=== PATIENT | female | born 1945 | race Caucasian/White ===

== ENCOUNTER 2016-11-29 05:22 | Day surgery (SDC) | payer MEDICARE, BC ==
[2016-11-29] MEDS ORDERED: Midazolam 1 MG/ML 2 ML SDV IV ONE ×4 (05:23→06:37)
[2016-11-29] MEDS ORDERED: fentaNYL 100 MCG/2 ML SDV IV ONE ×3 (05:23→06:35)
[2016-11-29] MEDS ORDERED: Midazolam 1 MG/ML 2 ML SDV ONE (06:13)
[2016-11-29] MEDS ORDERED: fentaNYL 100 MCG/2 ML SDV ONE (06:13)
[2016-11-29] MEDS ORDERED: Dextrose 5%-0.45% NaCl 1,000 ML IV SCH (07:00)
[2016-11-29] MEDS ORDERED: Sodium Chloride 0.9% 10 ML Syringe FLUSH PRN (07:00)
--- NOTE | 2016-11-29 07:39 | OR ---
DATE: 11/29/2016 PROCEDURES: Esophagogastroduodenoscopy and multiple pinch biopsies. INSTRUMENT USED: GIF-H180 Olympus video panendoscope. PREMEDICATIONS: Fentanyl 100 mcg intravenous, Versed 2 mg intravenous. Nasal O2 cannula. The procedure was done under pulse oximetry, BP recording, and showroom sales assistant. INDICATION: The patient with previous peptic ulcer disease with persistent upper abdominal pain as well as dyspepsia unexplained and not responsive to medical measures. Esophagogastroduodenoscopy is performed for detection of any active erosive lesions, malignancy also under consideration, endoscopic hemostasis therapy if needed. DESCRIPTION OF PROCEDURE: The scope was passed with ease. Adequate visualization of the esophagus was made from proximal to distal areas. No upper esophageal lesions identified. No distal esophageal stricture. No uphill or downhill esophageal varices. No Marilou-Cerda tear. No evidence of erosive esophagitis by Coke criteria. No esophageal polyp or tumor mass identified. Z-line was noted at around 40 cm distal to the oral verge, configuration consistent with grade 1 by ZAP classification. No proximal gastric varices noted. Gastric fundus examination by retroflexion showed no polypoid lesions. No gastric ulcer, malignant mass, or vascular ectasia identified. Multiple pinch biopsies were taken from the gastric antrum and proximal body and sent for PyloriTek test for H. pylori, and if negative in an hour, the tissue is to be sent for histopathology. Duodenal bulb shows no ulcer. Visualized second part of the duodenum is unremarkable. Multiple gastric antral erosions were noted without bleeding from them. Photographs were taken of the duodenal bulb, gastric antrum, fundus, and distal esophagus. IMPRESSION: Gastric antral erosions. The patient tolerated the procedure well. [facility] /[id number]
[2016-11-29 09:00] VITALS: BP 113/68
== END 2016-11-29 08:40 | disposition home or self-care (01) ==
LOC: DL.ENDO 05:22
PROVIDERS: ATTEND Internal Medicine Gastroenterology
DX: K29.50 Unspecified chronic gastritis without bleeding (principal); E03.9 Hypothyroidism, unspecified; F32.9 Major depressive disorder, single episode, unspecified; F41.1 Generalized anxiety disorder; Z72.0 Tobacco use; Z88.1 Allergy status to other antibiotic agents; Z88.2 Allergy status to sulfonamides; Z88.8 Allergy status to other drugs, medicaments and biological substances; Z91.09 Other allergy status, other than to drugs and biological substances
CPT/HCPCS: 43239; 87077; 88305; 88342; J2250; J3010; J7042

== ENCOUNTER 2017-01-03 05:14 | Day surgery (SDC) | payer MEDICARE, BC ==
[~2017-01-03 05:14] MED LIST: Sodium Chloride 0.9% 10 ML Syringe FLUSH PRN
[2017-01-03] MEDS ORDERED: Midazolam 1 MG/ML 2 ML SDV IV ONE ×6 (05:15→06:31)
[2017-01-03] MEDS ORDERED: fentaNYL 100 MCG/2 ML SDV IV ONE ×3 (05:15→06:21)
[2017-01-03] MEDS ORDERED: Dextrose 5%-0.45% NaCl 1,000 ML IV SCH (06:00)
[2017-01-03] MEDS ORDERED: Midazolam 1 MG/ML 2 ML SDV ONE (06:11)
[2017-01-03] MEDS ORDERED: fentaNYL 100 MCG/2 ML SDV ONE (06:11)
--- NOTE | 2017-01-03 07:34 | OR ---
DATE: 01/03/2017 PROCEDURE: Total colonoscopy, NBI, and cold snare polypectomy. INSTRUMENT USED: CF-H180AL Olympus video colonoscope. PREMEDICATIONS: Fentanyl 100 mcg intravenous, Versed 3 mg intravenous. Nasal O2 cannula. The procedure was done under pulse oximetry, BP recording, and quality assurance monitor. INDICATION: The patient with previous sessile serrated adenoma removal, recent right-sided lower abdominal pain unexplained. Colonoscopic examination is done for detection of any polypoid lesions and removal, endoscopic hemostasis therapy if needed. DESCRIPTION OF PROCEDURE: Initial rectal exam was unremarkable. Rigid anoscopy was normal. The colonoscope was passed with ease. Few scattered diverticula were noted in the distal left colon along with some deformity. Diminutive benign-appearing multiple polyps were noted in the rectum, macroscopic features consistent with hyperplastic ones. The scope was passed with ease up to the ileocecal area, photographs were taken of the normal-appearing cecum, identified by double-bulged ileocecal folds. No bleeding was noted from any of the visualized areas at the commencement of the examination. No stricture. No vascular ectasia. No large isolated ulcerations seen. No evidence of diffuse inflammatory bowel disease in the form of friability, contact bleeding, or ulcerations. Probing the proximal sides of folds and flexures, using adequate distention and clearing up the stool material, withdrawal of the scope was made. In the distal descending colon, diminutive benign-appearing polyp was noted, NBI views were obtained, cold snare polypectomy was done, the tissue was retrieved and sent for histopathology. No bleeding was noted from any of the visualized areas at the completion of examination. IMPRESSION: 1. Diverticulosis. 2. Diminutive colonic polyps. The patient tolerated the procedure well. [facility] /[id number]
[2017-01-03 09:15] VITALS: BP 127/80
== END 2017-01-03 08:50 | disposition home or self-care (01) ==
LOC: DL.ENDO 05:14
PROVIDERS: ATTEND Internal Medicine Gastroenterology
DX: Z12.11 Encounter for screening for malignant neoplasm of colon (principal); D12.4 Benign neoplasm of descending colon; Z85.038 Personal history of other malignant neoplasm of large intestine; K57.30 Diverticulosis of large intestine without perforation or abscess without bleeding; E03.9 Hypothyroidism, unspecified; F41.1 Generalized anxiety disorder; F32.9 Major depressive disorder, single episode, unspecified; Z88.1 Allergy status to other antibiotic agents; Z88.2 Allergy status to sulfonamides; Z88.8 Allergy status to other drugs, medicaments and biological substances; Z72.0 Tobacco use
CPT/HCPCS: 45385; J2250; J3010; J7042; 88305

== ENCOUNTER 2018-09-04 23:20 | Emergency (ER) | payer MEDICARE, BC ==
[2018-09-04 23:27] VITALS: BP 149/88
[2018-09-04] MEDS ORDERED: Sodium Chloride 0.9% 10 ML Syringe FLUSH PRN (23:27)
--- NOTE | 2018-09-04 23:50 | EDM.PDOC ---
ED HPI GENERAL MEDICAL PROBLEM - General Chief Complaint: Chest Pain Stated Complaint: CHEST PAIN [id number] Time Seen by Provider: 09/04/18 23:35 Source of Information: Reports: Patient, Family, RN, RN Notes Reviewed History Limitations: Reports: No Limitations - History of Present Illness INITIAL COMMENTS - FREE TEXT/NARRATIVE: Pt to ER with c/o cramping in the chest. Pt states she has had this happen about 4 times in the past month. She states it feels like a muscle spasm across the chest, sometimes in the neck. More difficult to take deep breaths, and to sit up. Denies radiation of the pain. Denies recent fever or chills. Pt. states she has been exercising daily at the gym, lifting hand weights. Also states she has recently been using a palm giselle and sanding boards. She states she is also concerned as she recently found out she has a hiatal hernia. Onset: Gradual Duration: Intermittent Location: Reports: Chest Mid-Sternal Chest Pain Score (Numeric/FACES): 9 - Related Data Allergies Allergy/AdvReac Type Severity Reaction Status Date / Time meperidine HCl [From Demerol] Allergy Unknown Arrhythmias Verified 01/03/17 05: 39 sulfamethoxazole Allergy Unknown HIVES/URTIC Verified 01/03/17 05:39 [From Bactrim] ARIA trimethoprim [From Bactrim] Allergy Unknown HIVES/URTIC Verified 01/03/17 05:39 ARIA formaldehyde Allergy Confusion Verified 01/03/17 05:39 petrolatum,white Allergy Confusion Verified 01/03/17 05:39 [From Petroleum Jelly] Home Meds: Home Meds Aspirin [Halfprin] 81 mg PO DAILY 02/07/16 [History] Levothyroxine 112 mcg PO DAILY 02/07/16 [History] Simvastatin 20 mg PO BEDTIME 02/07/16 [History] LORazepam 0.5 mg PO ASDIRECTED PRN 11/28/16 [History] Loratadine [Claritin] 10 mg PO DAILY PRN 11/28/16 [History] Omeprazole 20 mg PO DAILY 12/26/16 [History] Amitriptyline [Elavil] 25 mg PO BEDTIME 01/02/17 [History] cycloSPORINE [Restasis] 2 drop EYEBOTH DAILY 01/02/17 [History] Past Medical History HEENT History: Reports: Cataract, Sinusitis Cardiovascular History: Reports: High Cholesterol Respiratory History: Gastrointestinal History: Reports: Colon Polyp, Other (See Below) Other Gastrointestinal History: nausea Genitourinary History: Reports: None 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: Musculoskeletal History: Other Musculoskeletal History: OSTEOPENIA Neurological History: Psychiatric History: Reports: Panic Attack Endocrine/Metabolic History: Reports: Hypothyroidism Hematologic History: Reports: None Immunologic History: Reports: None Oncologic (Cancer) History: Reports: Leukemia Dermatologic History: Reports: None - Infectious Disease History Infectious Disease History: Reports: Chicken Pox, Measles, Mumps - Past Surgical History Head Surgeries/Procedures: Reports: None HEENT Surgical History: Reports: Cataract Surgery Cardiovascular Surgical History: Reports: None GI Surgical History: Reports: Colonoscopy, EGD Female Surgical History: Reports: None Endocrine Surgical History: Reports: None Social & Family History - Family History Family Medical History: Noncontributory - Tobacco Use Smoking Status *Q: Never Smoker Second Hand Smoke Exposure: No - Caffeine Use Caffeine Use: Reports: None Other Caffeine Use: DECAF COFFEE - Recreational Drug Use Recreational Drug Use: No ED ROS GENERAL - Review of Systems Review Of Systems: ROS reveals no pertinent complaints other than HPI. ED EXAM, GENERAL - Physical Exam Exam: See Below Exam Limited By: No Limitations General Appearance: Alert, WD/WN, Mild Distress Eye Exam: Bilateral Eye: EOMI, Normal Inspection Ears: Normal External Exam, Hearing Grossly Normal Nose: Normal Inspection Throat/Mouth: Normal Inspection, Normal Voice, No Airway Compromise Head: Atraumatic, Normocephalic Neck: Normal Inspection, Supple, Non-Tender, Full Range of Motion Respiratory/Chest: No Respiratory Distress, Lungs Clear, Normal Breath Sounds, No Accessory Muscle Use. No: Chest Non-Tender (chest tender to touch right and left anterior) Cardiovascular: Normal Peripheral Pulses, Regular Rate, Rhythm, No Edema, No Gallop, No JVD, No Murmur, No Rub Peripheral Pulses: 2+: Radial (L), Radial (R) GI/Abdominal: Normal Bowel Sounds, Soft, Non-Tender, No Organomegaly, No Distention (Female) Exam: Deferred Rectal (Female) Exam: Deferred Back Exam: Normal Inspection, Full Range of Motion, NT Extremities: Normal Inspection, Normal Range of Motion, Non-Tender, Normal Capillary Refill, No Pedal Edema Neurological: Alert, Oriented, CN II-XII Intact, Normal Cognition, Normal Gait, Normal Reflexes, No Motor/Sensory Deficits Psychiatric: Normal Affect, Normal Mood, Anxious Skin Exam: Warm, Dry, Intact, Normal Color, No Rash Lymphatic: No Adenopathy Course - Vital Signs Last Recorded V/S: Last Vital Signs Temp 99.2 F 09/04/18 23:23 Pulse 103 H 09/04/18 23:23 Resp 18 09/04/18 23:23 BP 149/88 H 09/04/18 23:23 Pulse Ox 93 L 09/04/18 23:23 - Orders/Labs/Meds Orders: Active Orders 24 hr Category Date Time Status EKG Documentation Completion [RC] STAT Care 09/04/18 23:27 Active Peripheral IV Care [RC] . DIRECTED Care 09/04/18 23:27 Active Peripheral IV Insertion Adult [OM.PC] Routine Oth 09/04/18 23:27 Ordered Labs: Laboratory Tests 09/04/18 09/04/18 Range/Units 23:34 23:34 WBC 13.3 H (5.0-10.0) 10^3/uL RBC 4.41 (4.2-5.4) 10^6/uL Hgb 13.1 D (12.0-16.0) g/dL Hct 41.1 (37.0-47.0) % MCV 93.2 (80-100) fL MCH 29.7 (27.0-34.0) pg MCHC 31.9 L (33.0-35.0) g/dL Plt Count 288 (150-450) 10^3/uL Neut % (Auto) 75.0 (42.2-75.2) % Lymph % (Auto) 15.6 L (20.5-50.1) % [place] % (Auto) 6.9 (2-8) % Eos % (Auto) 2.2 (1.0-3.0) % Baso % (Auto) 0.3 (0.0-1.0) % Sodium 133 L (135-145) mmol/L Potassium 4.2 (3.6-5.0) mmol/L Chloride 97 L (101-111) mmol/L Carbon Dioxide 24.0 (21.0-31.0) mmol/L Anion Gap 16.2 BUN 13 (7-18) mg/dL Creatinine 0.9 (0.6-1.3) mg/dL Est Cr Clr Drug Dosing 46.64 mL/min Estimated GFR (MDRD) > 60 BUN/Creatinine Ratio 14.44 Glucose 126 H (74-105) mg/dL Calcium 8.2 L (8.4-10.2) mg/dl Total Bilirubin 0.4 (0.2-1.0) mg/dL AST 27 (10-42) IU/L ALT 20 (10-60) IU/L Alkaline Phosphatase 81 (42-121) IU/L Troponin I < 0.02 (0.00-0.02) ng/ml Total Protein 7.3 (6.7-8.2) g/dl Albumin 3.6 (3.2-5.5) g/dl Globulin 3.7 Albumin/Globulin Ratio 0.97 Meds: Medications Discontinued Medications Generic Name Dose Route Start Last Admin Trade Name Freq PRN Reason Stop Dose Admin Sodium Chloride 10 ml 09/04/18 23:27 Saline Flush FLUSH ASDIRECTED PRN Keep Vein Open - Radiology Interpretation Free Text/Narrative:: Chest xray: FINDINGS: Lungs: Unremarkable. No consolidation. Pleural space: Unremarkable. No pleural effusion. No pneumothorax. Heart/Mediastinum: Unremarkable. No cardiomegaly. Bones/joints: Unremarkable. IMPRESSION: No acute findings. See rad report Departure - Departure Time of Disposition: 00:16 Disposition: Home, Self-Care 01 Condition: Fair Clinical Impression: Muscle spasm Intercostal muscle strain Qualifiers: Encounter type: initial encounter Qualified Code(s): S29.011A - Strain of muscle and tendon of front wall of thorax, initial encounter Instructions: Muscle Cramps and Spasms, [id number], Muscle Strain, Easy-to- Read, Nonspecific Chest Pain, [id number], Heat Therapy, [id number] Forms: ED Department Discharge Additional Instructions: May use heat to the area as tolerated May use Tylenol and/or Ibuprofen as directed for pain Rest Follow up with your primary care facility if no improvement - My Orders Last 24 Hours: My Active Orders 09/04/18 23:27 EKG Documentation Completion [RC] STAT Peripheral IV Care [RC] . DIRECTED Peripheral IV Insertion Adult [OM.PC] Routine - Assessment/Plan Last 24 Hours: My Active Orders 09/04/18 23:27 EKG Documentation Completion [RC] STAT Peripheral IV Care [RC] . DIRECTED Peripheral IV Insertion Adult [OM.PC] Routine
[2018-09-05] LABS: ANION GAP 16.2; CHLORIDE,CL 97 mmol/L (101-111); SODIUM,NA 133 mmol/L (135-145)
== END 2018-09-05 00:25 | disposition home or self-care (01) ==
LOC: DL.ED 23:20
DX: S29.011A Strain of muscle and tendon of front wall of thorax, initial encounter (principal); M62.838 Other muscle spasm; E78.00 Pure hypercholesterolemia, unspecified; E03.9 Hypothyroidism, unspecified; Z79.82 Long term (current) use of aspirin; Z88.8 Allergy status to other drugs, medicaments and biological substances; X58.XXXA Exposure to other specified factors, initial encounter
CPT/HCPCS: 36415; 71045; 80053; 84484; 85025; 93005; 99285-25

== ENCOUNTER 2020-07-29 15:58 | Emergency (ER) | payer MEDICARE, BC ==
[2020-07-29 17:20] VITALS: PULSE 74
[2020-07-29] MEDS ORDERED: Losartan 50 MG Tab PO ONE (17:36)
[2020-07-29 17:48] LABS: ANION GAP 14.8 mEq/L (7-13); CHLORIDE,CL 102 mmol/L (98-107); SODIUM,NA 142 mmol/L (136-145)
--- NOTE | 2020-07-29 17:55 | EDM.PDOC ---
Scribed by Leilani Hutson 07/29/20 [id number] for Nahun Young MD ED HPI GENERAL MEDICAL PROBLEM - General Chief Complaint: Cardiovascular Problem Stated Complaint: HIGH BLOOD PRESSURE Time Seen by Provider: 07/29/20 16:48 Source of Information: Reports: Patient, Provider, RN, RN Notes Reviewed History Limitations: Reports: No Limitations - History of Present Illness INITIAL COMMENTS - FREE TEXT/NARRATIVE: Patient presents to the ED from [facility] stating that her blood pressure has been increasing for the past month, She went to today for blood pressure check and it 176/102 at the clinic. She was given nothing for this at the clinic. She is here for more testing. She states she was dizzy and lightheaded this AM at home with blood pressure 196/98. She states she feels like head is blown up and needs to have air let out of it. On Saturday here and had CT of chest for pleural effusion check up, everything looks good there. Patient denies chest pain, rates her headache 2/10, took Tylenol 325 at 1200. She denies any slurred speech or drooping of mouth. Onset: Gradual Location: Reports: Generalized Severity: Moderate Headache Pain Score (Numeric/FACES): 2 - Related Data Allergies Allergy/AdvReac Type Severity Reaction Status Date / Time meperidine HCl [From Demerol] Allergy Unknown Arrhythmias Verified 07/29/20 16:31 sulfamethoxazole Allergy Unknown HIVES/URTIC Verified 07/29/20 16:31 [From Bactrim] ARIA trimethoprim [From Bactrim] Allergy Unknown HIVES/URTIC Verified 07/29/20 16:31 ARIA formaldehyde Allergy Confusion Verified 07/29/20 16:31 petrolatum,white Allergy Confusion Verified 07/29/20 16:31 [From Petroleum Jelly] macario chemicals Allergy Shaking Uncoded 07/29/20 16:32 Home Meds: Home Meds Aspirin [Halfprin] 81 mg PO DAILY 02/07/16 [History] Levothyroxine 150 mcg PO DAILY 02/07/16 [History] Simvastatin 20 mg PO BEDTIME 02/07/16 [History] Loratadine [Claritin] 10 mg PO DAILY PRN 11/28/16 [History] Omeprazole 20 mg PO DAILY 12/26/16 [History] Amitriptyline [Elavil] 25 mg PO BEDTIME 01/02/17 [History] cycloSPORINE [Restasis] 2 drop EYEBOTH DAILY PRN 01/02/17 [History] ursodioL [Ursodiol] 500 mg PO BID 07/29/20 [History] Past Medical History HEENT History: Reports: Cataract, Impaired Vision, Sinusitis Other HEENT History: wears glasses Cardiovascular History: Reports: High Cholesterol Respiratory History: Reports: None Gastrointestinal History: Reports: Colon Polyp, Other (See Below) Other Gastrointestinal History: nausea Genitourinary History: Reports: None 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: Musculoskeletal History: Other Musculoskeletal History: OSTEOPENIA Neurological History: Reports: None Psychiatric History: Reports: Anxiety, Panic Attack Endocrine/Metabolic History: Reports: Hypothyroidism Hematologic History: Reports: None Immunologic History: Reports: None Oncologic (Cancer) History: Reports: Leukemia Dermatologic History: Reports: None - Infectious Disease History Infectious Disease History: Reports: Chicken Pox, Measles, Mumps - Past Surgical History Head Surgeries/Procedures: Reports: None HEENT Surgical History: Reports: Cataract Surgery Cardiovascular Surgical History: Reports: None GI Surgical History: Reports: Colonoscopy, EGD Female Surgical History: Reports: None Endocrine Surgical History: Reports: None Neurological Surgical History: Reports: None Musculoskeletal Surgical History: Reports: None Social & Family History - Family History Family Medical History: No Pertinent Family History - Tobacco Use Tobacco Use Status *Q: Former Tobacco User Years of Tobacco use: 35 Packs/Tins Daily: 1 Used Tobacco, but Quit: Yes Month/Year Tobacco Last Used: april - Caffeine Use Caffeine Use: Reports: None, Coffee Other Caffeine Use: DECAF COFFEE - Recreational Drug Use Recreational Drug Use: No - Living Situation & Occupation Living situation: Reports: , with Spouse Occupation: Retired ED ROS GENERAL - Review of Systems Review Of Systems: Comprehensive ROS is negative, except as noted in HPI. ED EXAM, GENERAL - Physical Exam Exam: See Below Exam Limited By: No Limitations Eye Exam: Bilateral Eye: EOMI, Normal Inspection, PERRL Ears: Normal External Exam, Normal Canal, Hearing Grossly Normal, Normal TMs Nose: Normal Inspection, Normal Mucosa, No Blood Throat/Mouth: Normal Inspection, Normal Lips, Normal Teeth, Normal Gums, Normal Oropharynx, Normal Voice, No Airway Compromise Head: Atraumatic, Normocephalic Neck: Normal Inspection, Supple, Non-Tender, Full Range of Motion Respiratory/Chest: No Respiratory Distress, Lungs Clear, Normal Breath Sounds, No Accessory Muscle Use, Chest Non-Tender Cardiovascular: Normal Peripheral Pulses, Regular Rate, Rhythm, No Edema, No Gallop, No JVD, No Murmur, No Rub GI/Abdominal: Normal Bowel Sounds, Soft, Non-Tender, No Organomegaly, No Distention, No Abnormal Bruit, No Mass (Female) Exam: Deferred Rectal (Female) Exam: Deferred Back Exam: Normal Inspection, Full Range of Motion, NT Extremities: Normal Inspection, Normal Range of Motion, Non-Tender, Normal Capillary Refill, No Pedal Edema Neurological: Alert, Oriented, CN II-XII Intact, Normal Cognition, Normal Gait, Normal Reflexes, No Motor/Sensory Deficits Psychiatric: Normal Affect, Normal Mood Skin Exam: Warm, Dry, Intact, Normal Color, No Rash Lymphatic: No Adenopathy #1 Interpretation EKG Date: 07/29/20 Time: 17:29 Rhythm: Other (sinus rhythm) Rate (Beats/Min): 72 [place]: LAD-Left [place] Deviation P-Wave: Present QRS: Other (abnormal R-wave progression, early transition. Left ventricular hypertrophy.) ST-T: Normal QT: Normal Course - Vital Signs Last Recorded V/S: Last Vital Signs Temp 97.8 F 07/29/20 16:20 Pulse 74 07/29/20 17:19 Resp 16 07/29/20 17:19 BP 170/98 H 07/29/20 17:19 Pulse Ox 93 L 07/29/20 17:19 - Orders/Labs/Meds Orders: Active Orders 24 hr Category Date Time Status EKG 12 Lead [EKG Documentation Completion] [RC] STAT Care 07/29/20 16:56 Active CULTURE URINE [RM] Stat Lab 07/29/20 17:25 Received UA W/MICROSCOPIC [URIN] Stat Lab 07/29/20 17:25 Results Labs: Laboratory Tests 07/29/20 07/29/20 07/29/20 Range/Units 17:14 17:14 17:25 WBC 8.6 (5.0-10.0) 10^3/uL RBC 4.95 (4.2-5.4) 10^6/uL Hgb 14.8 D (12.0-16.0) g/dL Hct 45.7 (37.0-47.0) % MCV 92.3 (80-100) fL MCH 29.9 (27.0-34.0) pg MCHC 32.4 L (33.0-35.0) g/dL Plt Count 230 (150-450) 10^3/uL Neut % (Auto) 63.4 (42.2-75.2) % Lymph % (Auto) 25.5 (20.5-50.1) % [place] % (Auto) 8.5 H (2-8) % Eos % (Auto) 1.9 (1.0-3.0) % Baso % (Auto) 0.7 (0.0-1.0) % Sodium 142 (136-145) mmol/L Potassium 3.8 (3.5-5.1) mmol/L Chloride 102 (98-107) mmol/L Carbon Dioxide 29 (21-32) mmol/L Anion Gap 14.8 H (7-13) mEq/L BUN 16 (7-18) mg/dL Creatinine 1.15 H (0.55-1.02) mg/dL Est Cr Clr Drug Dosing 35.38 mL/min Estimated GFR (MDRD) 46 BUN/Creatinine Ratio 13.9 (No establ ref range) Glucose 89 (70-99) mg/dL Calcium 8.2 L (8.5-10.1) mg/dL Magnesium 2.0 (1.8-2.4) mg/dL Total Bilirubin 0.5 (0.2-1.0) mg/dL AST 13 L (15-37) U/L ALT 25 (14-59) U/L Alkaline Phosphatase 76 (46-116) U/L Troponin I < 0.017 (0.000-0.056) ng/mL Total Protein 6.8 (6.4-8.2) g/dL Albumin 3.1 L (3.4-5.0) g/dL Globulin 3.7 Albumin/Globulin Ratio 0.84 TSH, Ultra Sensitive 0.02 L (0.36-3.74) uIU/mL Urine Color Yellow (YELLOW) Urine Appearance Clear (CLEAR) Urine pH 5.0 (5.0-9.0) Ur Specific [place] 1.010 (1.005-1.030) Urine Protein Negative (NEGATIVE) Urine Glucose (UA) Negative (NEGATIVE) Urine Ketones Negative (NEGATIVE) Urine Occult Blood Trace-intact H (NEGATIVE) Urine Nitrite Negative (NEGATIVE) Urine Bilirubin Negative (NEGATIVE) Urine Urobilinogen 0.2 (0.2-1.0) mg/dL Ur Leukocyte Esterase Trace H (NEGATIVE) Meds: Medications Discontinued Medications Generic Name Dose Route Start Last Admin Trade Name Freq PRN Reason Stop Dose Admin Losartan Potassium 50 mg 07/29/20 17:36 Losartan 50 Mg Tab PO 07/29/20 17:37 ONETIME ONE Departure - Departure Time of Disposition: 18:00 Disposition: Home, Self-Care 01 Condition: Good Clinical Impression: Hypertension Qualifiers: Hypertension type: unspecified Qualified Code(s): I10 - Essential (primary) hypertension Instructions: Preventing Hypertension, Hypertension, Adult Forms: ED Department Discharge Additional Instructions: Rx: Losartan 50mg Follow up in clinic next week for recheck and medication management. Sepsis Event Note (ED) - Evaluation Sepsis Screening Result: No Definite Risk - Focused Exam Vital Signs: Vital Signs Temp Pulse Resp BP Pulse Ox 07/29/20 17:19 74 16 170/98 H 93 L 07/29/20 16:20 97.8 F 76 18 192/107 H 97 - My Orders Last 24 Hours: My Active Orders 07/29/20 16:56 EKG 12 Lead [EKG Documentation Completion] [RC] STAT 07/29/20 17:25 CULTURE URINE [RM] Stat UA W/MICROSCOPIC [URIN] Stat - Assessment/Plan Last 24 Hours: My Active Orders 07/29/20 16:56 EKG 12 Lead [EKG Documentation Completion] [RC] STAT 07/29/20 17:25 CULTURE URINE [RM] Stat UA W/MICROSCOPIC [URIN] Stat I have read and agree with the documentation that has been completed regarding this visit. By signing this record, I attest that the documentation was completed in my physical presence and is an accurate record of the encounter.
[2020-07-29 18:06] VITALS: BP 172/88
== END 2020-07-29 18:15 | disposition home or self-care (01) ==
LOC: DL.ED 15:58
DX: I10 Essential (primary) hypertension (principal); E78.00 Pure hypercholesterolemia, unspecified; E03.9 Hypothyroidism, unspecified; Z88.5 Allergy status to narcotic agent; Z88.2 Allergy status to sulfonamides; Z88.1 Allergy status to other antibiotic agents; Z91.048 Other nonmedicinal substance allergy status; Z79.899 Other long term (current) drug therapy; Z87.891 Personal history of nicotine dependence
CPT/HCPCS: 36415; 80053; 81001; 83735; 84443; 84484; 85025; 87086; 93005; 99283; A9270; 93010; 99284

== ENCOUNTER 2024-05-22 06:28 | Day surgery (SDC) | payer MEDICARE, BC ==
[2024-05-22] MEDS: Dextrose 5%-0.45% NaCl 1,000 ML IV SCH (06:54)
[2024-05-22] MEDS ORDERED: fentaNYL 100 MCG/2 ML SDV IV ONE (07:13)
[2024-05-22] MEDS ORDERED: fentaNYL 100 MCG/2 ML SDV ONE (07:13)
[2024-05-22] MEDS ORDERED: Midazolam 1 MG/ML 2 ML SDV IV ONE (07:13)
[2024-05-22] MEDS ORDERED: Midazolam 1 MG/ML 2 ML SDV ONE (07:13)
[2024-05-22] MEDS: fentaNYL 100 MCG/2 ML SDV IV ONE ×4 (07:23→07:34)
[2024-05-22] MEDS: Midazolam 1 MG/ML 2 ML SDV IV ONE ×3 (07:24→07:39)
[2024-05-22 09:13] VITALS: BP 96/86; PULSE 68
== END 2024-05-22 09:19 | disposition home or self-care (01) ==
LOC: DL.ENDO 06:28
PROVIDERS: ATTEND Internal Medicine Gastroenterology
DX: Z12.11 Encounter for screening for malignant neoplasm of colon (principal); D12.4 Benign neoplasm of descending colon; Z86.0100 Personal history of colon polyps, unspecified; J43.2 Centrilobular emphysema; F41.8 Other specified anxiety disorders; E03.9 Hypothyroidism, unspecified; E78.5 Hyperlipidemia, unspecified; D86.9 Sarcoidosis, unspecified; Z79.899 Other long term (current) drug therapy
CPT/HCPCS: 88305; J2250; J3010; J7799